=== PATIENT | male | born 1950 | race Caucasian/White ===

== ENCOUNTER → 2016-04-14 | Outpatient (CLI) | payer MEDICARE ==
[~2016-04-14] MED LIST: /ESCI20TA PO; /WARF25TA PO; ACET50TA PO; ACET50TAOT PO; ACID1CAP PO; ALPR0.25 PO; ATOR1TAB19 PO; BAYE325T12 PO; BISAC5TA PO; CALCTAB68 PO; CALCTAB7 PO; CIPR500S PO; CIPR500T89 PO; CLOB05OI TOP; D-10TAB2 PO; FINA5TAB2 PO; FLOM5CAP PO; GAS-80CH PO; GLIP5TAB2 PO; GLIP5TAB8 PO; HYDR200T3 PO; INFL10VL IV; ISOS10TAB PO; LANTINJ4 SC; LISI-538 PO; LISI10TA4 PO; LISI5TAB PO; MAGN400C2 PO; MAGN400T5 PO; MIRA3350 PO; OREN250I IV; PANT40TA2 PO; PERC5TAB6 PO; PERCOCET PO; PLAQ200T PO; POLYBTL PO; PRED10PA2 PO; PRED10TA PO; PRED5TA PO; SPIR25TA2 PO; TORS10TA3 PO; TORS20TA2 PO; TRAM50TA2 PO; TRAZ50TA4 PO; TRIAMCINOLONE TOP; VITA100T98 PO; VITA400T PO; VITA500055 PO; WARF-18 PO; WARF05TA PO; XANA0.25 PO; ZEST20TA8 PO; [UNRECOGNIZED DRUG - CODE] PR
== END ==
LOC: M ONCR 09:54
PROVIDERS: ATTEND Radiology Radiation Oncology
DX: C43.59 Malignant melanoma of other part of trunk (principal)

== ENCOUNTER → 2016-04-18 | Outpatient (CLI) | payer MEDICARE ==
[2016-04-18 13:08] LABS: INR 3.7
== END ==
LOC: M WUC 10:09
PROVIDERS: ATTEND Nurse Practitioner Family
DX: I48.2 Chronic atrial fibrillation (principal)

== ENCOUNTER → 2016-04-25 | Outpatient (CLI) | payer MEDICARE ==
[2016-04-25 13:45] LABS: INR 2.22
== END ==
LOC: M WUC 10:08
PROVIDERS: ATTEND Nurse Practitioner Family
DX: I48.2 Chronic atrial fibrillation (principal)

== ENCOUNTER → 2016-04-29 | Outpatient (CLI) | payer MEDICARE ==
--- NOTE | 2016-05-02 13:06 | REP ---
Whole body radionuclide bone scan: History: Melanoma. Comparison bone scan is from September 30, 2015. The prior study showed areas of increased uptake in the subtrochanteric femur on the right as well as in the right 6th rib and the right frontal bone of the calvarium. Technique: 21.2 mCi technetium 99m MDP is injected and standard whole body bone scan imaging is acquired. Scintigraphic findings: A focus of increased uptake is again seen in the right frontal bone unchanged from the comparison study. There is subtle increased uptake and medial aspect of the subtrochanteric right femur unchanged. Previously noted right sixth rib uptake is improved but still visible on oblique planar image. No new area of increased uptake is seen. There is arthritic uptake in the right knee. There is uptake in bilateral kidneys and in the urinary bladder. There is arthritic uptake at the shoulders bilaterally unchanged. Impression: There is no new area of increased uptake. Right rib uptake is improved. Signed by Sachin Hernandez MD 05/02/2016 01:26 P
== END ==
LOC: M RAD 10:07
PROVIDERS: ATTEND Internal Medicine Medical Oncology
DX: C43.9 Malignant melanoma of skin, unspecified (principal)
CPT/HCPCS: 78306; A9503

== ENCOUNTER → 2016-05-03 | Outpatient (RCR) | payer MEDICARE | LOC: M PT 04-07 09:38 | PROVIDERS: ATTEND Orthopaedic Surgery | DX: Z51.89 Encounter for other specified aftercare (principal); M65.812 Other synovitis and tenosynovitis, left shoulder | CPT/HCPCS: 97035; 97110; 97140; 97161; G0283; G8984; G8985 ==

== ENCOUNTER → 2016-05-04 | Outpatient (CLI) | payer MEDICARE ==
--- NOTE | 2016-05-04 15:35 | REP ---
PET/CT: History: Restaging melanoma. Originally for skin melanoma. 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 Comparisons: Comparison PET/CT January 20, 2016 and July 17, 2014. TECHNIQUE: 74 minutes following the intravenous injection of a 8.0 mCi dose of F-18 FDG, three-dimensional PET scintigraphy is acquired from the vertex to the toes. Triplanar noncontrast CT scanning is acquired through the same anatomic range for attenuation correction, and image registration with scan parameters optimized to minimize radiation exposure to the patient. PET scintigraphy and CT datasets were fused and displayed on a workstation with multiplanar and projection display capability. PET/CT Findings: There are postoperative changes in the left inguinal soft tissues at the site of the left inguinal node resection with no hypermetabolic uptake. There is however hypermetabolic milagros uptake in an enlarged lymph node posterior to the left external iliac vein along the left pelvic sidewall. Maximum SUV value in this lymph node is 11.9. This node is enlarged, measuring 2.2 cm. It is a new finding from the prior study. No other abnormal milagros hypermetabolic uptake is seen in the abdomen or pelvis. No abnormal hepatic uptake. Gallstones are seen. There is hypermetabolic uptake again seen in the region of the anus. This was present on the original PET/CT study of July 17, 2014 and was absent most recently on January 20, 2016. Maximum SUV value in this is 5.9 today. Uncertain significance. No abnormal hypermetabolic uptake is seen in the chest. Head and neck soft tissues are unremarkable. No abnormal skeletal uptake is seen. No intracranial abnormal uptake is seen. Impression: New hypermetabolic lymphadenopathy along the left pelvic sidewall. Recurrent mildly hypermetabolic uptake in the region of the anus, uncertain significance. Postoperative changes in the left inguinal soft tissues. Cholelithiasis again noted. Signed by Sachin Hernandez MD 05/04/2016 04:24 P
== END ==
LOC: M RAD 07:41
PROVIDERS: ATTEND Internal Medicine Medical Oncology
DX: C43.9 Malignant melanoma of skin, unspecified (principal); R59.1 Generalized enlarged lymph nodes
CPT/HCPCS: 78816; A9552

== ENCOUNTER 2016-05-09 10:09 | Outpatient (RCR) | payer MEDICARE ==
--- NOTE | 2016-05-10 07:14 | RADONC ---
RADIATION ONCOLOGY SIMULATION NOTE DATE: 05/09/2016 Mr. Valadez was taken to the CT scan for CT simulation of his inguinal field. CT was accomplished without difficulty or discomfort. Radiation treatment planning is underway and radiation treatments will begin subsequently. An immobilization device was created without difficulty or discomfort. It will be used throughout the course treatment as well. I was physically present throughout the course of CT simulation.
--- NOTE | 2016-05-16 08:02 | RADONC ---
RADIATION ONCOLOGY SIMULATION NOTE DATE: 05/12/2016 CHART NUMBER: [id number]. Mr. Valadez was taken to the linear accelerator today for clinical setup of his left inguinal electron field. Setup was accomplished without difficulty or discomfort. Radiation treatment planning is underway and radiation treatments will begin subsequently. An immobilization device was created at the time of CT simulation and will be utilized throughout the course of treatment. We initially CT him in order to calculate the depth of electron field necessary. I was physically present throughout the course of this electron clinical simulation.
--- NOTE | 2016-05-25 09:12 | RADONC ---
RADIATION ONCOLOGY PROGRESS NOTE DATE: 05/23/2016 CHART NUMBER: [id number] Mr. Valadez is presently at a dose of 1500 cGy to his left inguinal region and is tolerating treatments quite well with no complaints at this time related to his radiation therapy. He is having no skin pain or discomfort. REVIEW OF SYSTEMS: The patient's review of systems is noncontributory. He denies nausea, vomiting, fevers, chills, night sweats, diplopia, headaches, anxiety or depression, anorexia, weight loss, visual disturbances, chest pain, urinary or bowel difficulties, bone pain or neurological problems. PHYSICAL EXAMINATION: The patient's skin is in good condition with no evidence of radiation change present. There is no moist or dry desquamation. The remainder of his physical exam remains unchanged. Mr. Valadez is tolerating treatments quite well and radiation will continue as scheduled.
--- NOTE | 2016-05-30 10:39 | RADONC ---
RADIATION ONCOLOGY PROGRESS NOTE: DATE: 05/30/2016 Mr. Valadez is presently at a dose of 2750 cGy to his left inguinal region and is tolerating treatments quite well at this point with no complaints related to his radiation therapy. He has no skin discomfort or other problems. REVIEW OF SYSTEMS: The patient's review of systems is noncontributory. Denies nausea, vomiting, fevers, chills, night sweats, diplopia, headaches, anxiety or depression, anorexia, weight loss, visual disturbances, chest pain, urinary or bowel difficulties, bone pain, or neurological problems. PHYSICAL EXAMINATION: The patient's skin is in excellent condition with no evidence of radiation change present. There is no moist or dry desquamation. The patient is a well-developed, well-nourished male in no acute distress. HEENT exam is normocephalic, atraumatic. Extraocular movements are intact. There is no palpable cervical, supraclavicular, infraclavicular, axillary, or inguinal lymphadenopathy present. Lungs are clear to auscultation and percussion. Heart has a regular rate and rhythm. Abdomen is benign with no hepatosplenomegaly, masses, or tenderness. Rectal examination reveals a normal anal sphincter tone. His prostate is smooth with no evidence of nodularity. Skeletal examination reveals no tenderness to pressure or percussion of the bony skeleton. Extremities reveal no clubbing, cyanosis, or edema. Neurologic exam is grossly intact, as is the remainder of the physical examination. Mr. Valadez is tolerating treatments quite well and radiation will continue as scheduled.
== END 2016-05-31 ==
LOC: M ONCR 10:09
PROVIDERS: ATTEND Radiology Radiation Oncology
DX: C77.4 Secondary and unspecified malignant neoplasm of inguinal and lower limb lymph nodes (principal); C44.90 Unspecified malignant neoplasm of skin, unspecified; D03.8 Melanoma in situ of other sites

== ENCOUNTER → 2016-05-09 | Outpatient (CLI) | payer MEDICARE | LOC: M RAD 08:33 | PROVIDERS: ATTEND Radiology Radiation Oncology | DX: C43.9 Malignant melanoma of skin, unspecified (principal) ==

== ENCOUNTER → 2016-05-16 | Outpatient (CLI) | payer MEDICARE ==
[2016-05-16 13:12] LABS: MEAN CORPUSCULAR HEMOGLOBIN 32.8 pg (27.0-33.0); MEAN CORPUSCULAR VOLUME 99.5 fl (80.0-96.0); WHITE BLOOD COUNT 14.4 K/mm3 (4.0-10.0)
[2016-05-16 13:19] LABS: ALBUMIN 3.4 GM/DL (3.2-5.2); ALBUMIN/GLOBULIN RATIO 1.03 (1.00-1.93); ALKALINE PHOSPHATASE 69 U/L (45-117); ALT/SGPT 32 U/L (12-78); ANION GAP 7 MEQ/L (8-16); AST/SGOT 20 U/L (15-37); BILIRUBIN,TOTAL 0.7 MG/DL (0.2-1.0); BLOOD UREA NITROGEN 35 MG/DL (7-18); CARBON DIOXIDE LEVEL 32 MEQ/L (21-32); CHLORIDE LEVEL 100 MEQ/L (98-107); CREATININE FOR GFR 1.23 MG/DL (0.70-1.30); GLOMERULAR FILTRATION RATE > 60.0 (>49); GLUCOSE, FASTING 201 MG/DL (80-110); SODIUM LEVEL 139 MEQ/L (136-145); TOTAL PROTEIN 6.7 GM/DL (6.4-8.2)
[2016-05-16 13:20] LABS: POTASSIUM SERUM 5.6 MEQ/L (3.5-5.1)
== END ==
LOC: M WUC 09:21
PROVIDERS: ATTEND Family Medicine
DX: M06.9 Rheumatoid arthritis, unspecified (principal); I10 Essential (primary) hypertension; E11.65 Type 2 diabetes mellitus with hyperglycemia; M85.9 Disorder of bone density and structure, unspecified; E55.9 Vitamin D deficiency, unspecified; I50.32 Chronic diastolic (congestive) heart failure; I48.2 Chronic atrial fibrillation; Z51.81 Encounter for therapeutic drug level monitoring; Z79.01 Long term (current) use of anticoagulants

== ENCOUNTER → 2016-05-16 | Outpatient (CLI) | payer MEDICARE ==
[2016-05-16 13:11] LABS: MEAN CORPUSCULAR HEMOGLOBIN 32.9 pg (27.0-33.0); MEAN CORPUSCULAR HGB CONC 33.1 g/dl (32.0-36.5); MEAN CORPUSCULAR VOLUME 99.4 fl (80.0-96.0); RED CELL DISTRIBUTION WIDTH 14.1 % (11.5-14.5); WHITE BLOOD COUNT 14.3 K/mm3 (4.0-10.0)
[2016-05-16 13:21] LABS: ALBUMIN 3.5 GM/DL (3.2-5.2); ANION GAP 10 MEQ/L (8-16); BLOOD UREA NITROGEN 37 MG/DL (7-18); CARBON DIOXIDE LEVEL 29 MEQ/L (21-32); CHLORIDE LEVEL 100 MEQ/L (98-107); CREATININE FOR GFR 1.18 MG/DL (0.70-1.30); GLOMERULAR FILTRATION RATE > 60.0 (>49); GLUCOSE, FASTING 203 MG/DL (80-110); PHOSPHORUS LEVEL 3.5 MG/DL (2.5-4.9); SODIUM LEVEL 139 MEQ/L (136-145)
== END ==
LOC: M WUC 09:33
PROVIDERS: ATTEND Physician Assistant
DX: I50.32 Chronic diastolic (congestive) heart failure (principal); I48.2 Chronic atrial fibrillation

== ENCOUNTER → 2016-05-16 | Outpatient (CLI) | payer MEDICARE ==
[2016-05-16 13:50] LABS: INR 3.03
== END ==
LOC: M WUC 09:26
PROVIDERS: ATTEND Nurse Practitioner Family
DX: I48.2 Chronic atrial fibrillation (principal); Z51.81 Encounter for therapeutic drug level monitoring; Z79.01 Long term (current) use of anticoagulants

== ENCOUNTER → 2016-05-16 | Outpatient (CLI) | payer MEDICARE ==
[2016-05-16 13:17] LABS: ANION GAP 6 MEQ/L (8-16); BLOOD UREA NITROGEN 37 MG/DL (7-18); CARBON DIOXIDE LEVEL 32 MEQ/L (21-32); CHLORIDE LEVEL 100 MEQ/L (98-107); GLOMERULAR FILTRATION RATE > 60.0 (>49); GLUCOSE, FASTING 200 MG/DL (80-110); SODIUM LEVEL 138 MEQ/L (136-145)
[2016-05-16 13:19] LABS: POTASSIUM SERUM 5.2 MEQ/L (3.5-5.1)
== END ==
LOC: M WUC 09:38
PROVIDERS: ATTEND Physician Assistant Medical
DX: M85.9 Disorder of bone density and structure, unspecified (principal); E55.9 Vitamin D deficiency, unspecified

== ENCOUNTER → 2016-05-19 | Outpatient (CLI) | payer MEDICARE ==
[~2016-05-19] MED LIST changes: +SILV-4 TOP
[2016-05-19 20:03] LABS: CALCIUM LEVEL 8.8 MG/DL (8.8-10.2); CREATININE FOR GFR 1.3 MG/DL (0.70-1.30)
[2016-05-19 20:15] LABS: POTASSIUM SERUM 5.3 MEQ/L (3.5-5.1)
== END ==
LOC: M WUC 11:48
PROVIDERS: ATTEND Nurse Practitioner Family
DX: E87.5 Hyperkalemia (principal); I11.0 Hypertensive heart disease with heart failure; I48.2 Chronic atrial fibrillation; E78.2 Mixed hyperlipidemia; M06.9 Rheumatoid arthritis, unspecified; E11.42 Type 2 diabetes mellitus with diabetic polyneuropathy
CPT/HCPCS: 36415; 80048; G0463

== ENCOUNTER 2016-05-25 07:00 | Outpatient (RCR) | payer MEDICARE ==
[~2016-05-25 07:00] MED LIST changes: -SILV-4 TOP
== END 2016-05-31 ==
LOC: M PT 07:00
PROVIDERS: ATTEND Orthopaedic Surgery
DX: Z51.89 Encounter for other specified aftercare (principal); M65.812 Other synovitis and tenosynovitis, left shoulder
CPT/HCPCS: 97110; 97140; G8984; G8985

== ENCOUNTER 2016-06-01 14:42 | Outpatient (RCR) | payer MEDICARE ==
[~2016-06-01 14:42] MED LIST changes: -SILV-4 TOP
[2016-06-06] MEDS ORDERED: SILV-4 TOP (08:29)
--- NOTE | 2016-06-06 13:22 | RADONC ---
RADIATION ONCOLOGY PROGRESS NOTE DATE: 06/06/2016 CHART NUMBER: [id number]. PROGRESS NOTE: Mr. Valadez is presently at a dose of 4000 cGy to his left inguinal region and had been tolerating his treatments quite well. The patient is now reporting some tenderness of the skin in the inguinal area. REVIEW OF SYSTEMS: The patient's review of systems is positive for some tenderness but is otherwise noncontributory. The patient's review of systems is noncontributory. Denies nausea, vomiting, fevers, chills, night sweats, diplopia, headaches, anxiety or depression, anorexia, weight loss, visual disturbances, chest pain, urinary or bowel difficulties, bone pain, or neurological problems. PHYSICAL EXAMINATION: The patient's skin shows some moist desquamation in the skin folds of the inguinal region. The remainder of the skin is in good condition with no evidence of moist or dry desquamation. The remainder of his physical exam remains unchanged. Mr. Valadez has now developed some moist desquamation and tenderness. I have placed the patient on rest for the remainder of the week and radiation will resume on Monday. I have also sent in a prescription for Silvadene to be applied topically.
--- NOTE | 2016-06-13 09:09 | RADONC ---
RADIATION ONCOLOGY PROGRESS NOTE DATE: 06/13/2016 CHART NUMBER: [id number]. Mr. Valadez is presently at a dose of 4250 cGy to his left inguinal area and overall is tolerating treatments at this point pretty well. He had been on rest since Monday last week for an open area of desquamation. He returns today feeling somewhat better. The areas quite small and I think it is safe to reinitiate treatment at this point. He only has four fractions to go. He is using his Silvadene. REVIEW OF SYSTEMS: The patient's review of systems is positive for some tenderness in the treated left inguinal region, but is otherwise noncontributory. He denies nausea, vomiting, fevers, chills, night sweats, diplopia, headaches, anxiety or depression, anorexia, weight loss, visual disturbances, chest pain, urinary or bowel difficulties, bone pain or neurological problems. PHYSICAL EXAMINATION: The patient's skin is overall in good condition except for a 1 cm circular moist desquamation spot. The remainder of his physical exam remains unchanged. Mr. Valadez has resumed radiation today and it will continue until .
--- NOTE | 2016-06-16 10:00 | RADONC ---
RADIATION ONCOLOGY TREATMENT SUMMARY: DATE: 06/16/2016 DIAGNOSIS: Malignant melanoma. STAGE: Stage is III, [id number] versus stage IV, [id number] ECOG PERFORMANCE STATUS: 0 Mr. 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 We treated the left inguinal region for a dose of 5000 cGy delivered in 20 fractions of 250 cGy each over 31 elapsed days from 05/16/2016 through 06/16/2016. The patient's left inguinal region was treated on the linear accelerator utilizing a 16 MEV electron beam prescribed to the 90% isodose line via an en face technique. Mr. Valadez tolerated his treatments quite well but did develop some moist desquamation requiring a short treatment break. He was subsequently able to complete therapy as prescribed. I have scheduled the patient to see me again in 1 month for further followup. He will also continue to be followed by his other physicians as well. cc: MD Alhaji Mulligan MD
== END 2016-07-01 ==
LOC: M ONCR 14:42
PROVIDERS: ATTEND Radiology Radiation Oncology
DX: C77.4 Secondary and unspecified malignant neoplasm of inguinal and lower limb lymph nodes (principal); D03.8 Melanoma in situ of other sites; C44.90 Unspecified malignant neoplasm of skin, unspecified

== ENCOUNTER → 2016-06-01 | Outpatient (CLI) | payer MEDICARE ==
[~2016-06-01] MED LIST changes: +SILV-4 TOP
[2016-06-01 09:19] LABS: BASO % 0.2 % (0.0-1.0); EOS # 0.1 K/mm3 (0.0-0.50); EOS % 1.2 % (0.0-3.0); LARGE UNSTAINED CELL # 0.2 K/mm3 (0.0-0.4); LARGE UNSTAINED CELL % 1.8 % (0.0-4.0); LYMPH # 1.3 K/mm3 (1.5-4.5); LYMPH % 11.5 % (24.0-44.0); MEAN CORPUSCULAR HEMOGLOBIN 32.6 pg (27.0-33.0); MEAN CORPUSCULAR HGB CONC 33.7 g/dl (32.0-36.5); MEAN CORPUSCULAR VOLUME 96.8 fl (80.0-96.0); MONO # 0.7 K/mm3 (0.0-0.8); NEUTROPHILS # 8.6 K/mm3 (1.8-7.7); NEUTROPHILS % 79.4 % (36.0-66.0); PLATELET COUNT, AUTOMATED 199 k/mm3 (150-450); RED CELL DISTRIBUTION WIDTH 13.7 % (11.5-14.5); WHITE BLOOD COUNT 10.9 K/mm3 (4.0-10.0)
[2016-06-01 09:42] LABS: ALBUMIN 3.4 GM/DL (3.2-5.2); ALBUMIN/GLOBULIN RATIO 0.92 (1.00-1.93); ALKALINE PHOSPHATASE 69 U/L (45-117); ALT/SGPT 27 U/L (12-78); ANION GAP 10 MEQ/L (8-16); AST/SGOT 20 U/L (15-37); BILIRUBIN,TOTAL 0.7 MG/DL (0.2-1.0); BLOOD UREA NITROGEN 34 MG/DL (7-18); CALCIUM LEVEL 8.6 MG/DL (8.8-10.2); CARBON DIOXIDE LEVEL 27 MEQ/L (21-32); CHLORIDE LEVEL 100 MEQ/L (98-107); CREATININE FOR GFR 1.05 MG/DL (0.70-1.30); GLOMERULAR FILTRATION RATE > 60.0 (>49); GLUCOSE, FASTING 163 MG/DL (80-110); POTASSIUM SERUM 4.6 MEQ/L (3.5-5.1); SODIUM LEVEL 137 MEQ/L (136-145); TOTAL PROTEIN 7.1 GM/DL (6.4-8.2)
== END ==
LOC: M WUC 08:31
PROVIDERS: ATTEND Internal Medicine Rheumatology
DX: K76.0 Fatty (change of) liver, not elsewhere classified (principal)

== ENCOUNTER → 2016-06-13 | Outpatient (CLI) | payer MEDICARE ==
[~2016-06-13] MED LIST changes: +SILV-4 TOP
[2016-06-13 12:30] LABS: INR 3.25
== END ==
LOC: M WUC 09:32
PROVIDERS: ATTEND Physician Assistant
DX: I48.2 Chronic atrial fibrillation (principal)

== ENCOUNTER → 2016-06-22 | Outpatient (CLI) | payer MEDICARE ==
--- NOTE | 2016-06-22 08:27 | REP ---
Clinical: Abdominal pain with history of irritable bowel syndrome. Technique: Real time bell scale ultrasound examination using curved array transducer. Findings: Liver and pancreas are normal in contour, size, echogenicity without focal hepatic or pancreatic lesions identified. The gallbladder demonstrates multiple mobile stones without wall thickening or pericholecystic fluid. No biliary ductal dilatation is appreciated and the common bile duct measures 4 mm diameter. Right kidney is normal in reniform shape without hydronephrosis measuring 11.8 x 6.5 x 6.4 cm with 1.7 cm medial lower pole cyst. Visualized abdominal aorta normal. No ascites. Impression: 1. Normal liver and pancreas. 2. Cholelithiasis. 3. 1.7 cm right renal cyst. Signed by Daron Abraham MD 06/22/2016 08:19 A
== END ==
LOC: M RAD 07:28
PROVIDERS: ATTEND Internal Medicine Gastroenterology
DX: K58.0 Irritable bowel syndrome with diarrhea (principal)

== ENCOUNTER → 2016-06-23 | Outpatient (CLI) | payer MEDICARE | LOC: M WUC 09:49 | PROVIDERS: ATTEND Internal Medicine Gastroenterology | DX: K58.0 Irritable bowel syndrome with diarrhea (principal) ==

== ENCOUNTER → 2016-06-23 | Outpatient (REF) | payer MEDICARE ==
[2016-06-23 19:54] LABS: MEAN CORPUSCULAR HEMOGLOBIN 33.3 pg (27.0-33.0); MEAN CORPUSCULAR HGB CONC 33.7 g/dl (32.0-36.5); MEAN CORPUSCULAR VOLUME 98.9 fl (80.0-96.0); RED CELL DISTRIBUTION WIDTH 13.8 % (11.5-14.5); WHITE BLOOD COUNT 12.5 K/mm3 (4.0-10.0)
[2016-06-23 20:15] LABS: ALBUMIN 3.6 GM/DL (3.2-5.2); ALBUMIN/GLOBULIN RATIO 0.97 (1.00-1.93); BILIRUBIN,TOTAL 0.6 MG/DL (0.2-1.0); CALCIUM LEVEL 8.8 MG/DL (8.8-10.2); CREATININE FOR GFR 1.61 MG/DL (0.70-1.30); GLOMERULAR FILTRATION RATE 46.1 (>49); TOTAL PROTEIN 7.3 GM/DL (6.4-8.2)
[2016-06-23 21:03] LABS: POTASSIUM SERUM 5.6 MEQ/L (3.5-5.1)
== END ==
LOC: M SFHCADAM 12:08
PROVIDERS: ATTEND Family Medicine
DX: R53.0 Neoplastic (malignant) related fatigue (principal); E13.9 Other specified diabetes mellitus without complications

== ENCOUNTER → 2016-06-23 | Outpatient (CLI) | payer MEDICARE ==
--- NOTE | 2016-06-23 13:56 | REP ---
CHEST, TWO VIEWS: HISTORY: Cough. COMPARISON: 01/21/2015 There is elevation of the left hemidiaphragm. The lungs are clear. The cardiac silhouette is enlarged. The pulmonary vasculature is normal in appearance. Degenerative change is present in the thoracic spine. IMPRESSION: Cardiomegaly. Signed by Yfn Hightower MD 06/23/2016 02:05 P
== END ==
LOC: M ADAMS 13:02
PROVIDERS: ATTEND Family Medicine
DX: I51.7 Cardiomegaly (principal); R05 Cough; R53.0 Neoplastic (malignant) related fatigue; E13.9 Other specified diabetes mellitus without complications; K58.0 Irritable bowel syndrome with diarrhea
CPT/HCPCS: 36415; 71020; 80053; 82397; 83036; 83520; 83883; 85027; G0463

== ENCOUNTER 2016-06-30 08:30 | Outpatient (RCR) | payer MEDICARE | END 2016-07-01 | LOC: M PT 08:30 | PROVIDERS: ATTEND Orthopaedic Surgery | DX: Z51.89 Encounter for other specified aftercare (principal); M65.812 Other synovitis and tenosynovitis, left shoulder | CPT/HCPCS: 97035; 97110; 97140; G8984; G8985; G8986 ==

== ENCOUNTER → 2016-06-30 | Outpatient (CLI) | payer MEDICARE ==
[2016-06-30 13:08] LABS: ALBUMIN 3.2 GM/DL (3.2-5.2); ALT/SGPT 29 U/L (12-78); CREATININE FOR GFR 1.25 MG/DL (0.70-1.30); GLOMERULAR FILTRATION RATE > 60.0 (>49)
[2016-06-30 13:59] LABS: BASO % 0.2 % (0.0-1.0); EOS # 0.1 K/mm3 (0.0-0.50); EOS % 1.3 % (0.0-3.0); LARGE UNSTAINED CELL # 0.1 K/mm3 (0.0-0.4); LARGE UNSTAINED CELL % 1.2 % (0.0-4.0); LYMPH # 0.6 K/mm3 (1.5-4.5); LYMPH % 6.4 % (24.0-44.0); MEAN CORPUSCULAR HEMOGLOBIN 32.2 pg (27.0-33.0); MEAN CORPUSCULAR HGB CONC 31.8 g/dl (32.0-36.5); MEAN CORPUSCULAR VOLUME 101.3 fl (80.0-96.0); MONO # 0.5 K/mm3 (0.0-0.8); MONO % 5.4 % (0.0-5.0); NEUTROPHILS # 8.1 K/mm3 (1.8-7.7); NEUTROPHILS % 85.5 % (36.0-66.0); PLATELET COUNT, AUTOMATED 190 k/mm3 (150-450); RED CELL DISTRIBUTION WIDTH 13.9 % (11.5-14.5); WHITE BLOOD COUNT 9.5 K/mm3 (4.0-10.0)
== END ==
LOC: M WUC 09:34
PROVIDERS: ATTEND Internal Medicine Rheumatology
DX: M06.09 Rheumatoid arthritis without rheumatoid factor, multiple sites (principal); Z51.81 Encounter for therapeutic drug level monitoring; Z79.899 Other long term (current) drug therapy

== ENCOUNTER → 2016-06-30 | Outpatient (CLI) | payer MEDICARE ==
[2016-06-30 12:55] LABS: INR 4.05
== END ==
LOC: M WUC 09:39
PROVIDERS: ATTEND Physician Assistant
DX: I48.2 Chronic atrial fibrillation (principal); Z51.81 Encounter for therapeutic drug level monitoring; Z79.01 Long term (current) use of anticoagulants; M06.09 Rheumatoid arthritis without rheumatoid factor, multiple sites; Z79.899 Other long term (current) drug therapy

== ENCOUNTER → 2016-07-12 | Outpatient (CLI) | payer MEDICARE | LOC: M WUC 11:12 | PROVIDERS: ATTEND Nurse Practitioner Family | DX: L98.499 Non-pressure chronic ulcer of skin of other sites with unspecified severity (principal); I48.2 Chronic atrial fibrillation; Z51.81 Encounter for therapeutic drug level monitoring; Z79.01 Long term (current) use of anticoagulants | CPT/HCPCS: 36415; 85610; 87070; 87077; 87186; G0463 ==

== ENCOUNTER → 2016-07-12 | Outpatient (REF) | payer MEDICARE | LOC: M SFHCPLAZ 15:41 | PROVIDERS: ATTEND Dermatology | DX: L98.499 Non-pressure chronic ulcer of skin of other sites with unspecified severity (principal) ==

== ENCOUNTER → 2016-07-20 | Outpatient (CLI) | payer MEDICARE ==
--- NOTE | 2016-07-21 07:55 | RADONC ---
RADIATION ONCOLOGY FOLLOWUP NOTE DATE: 07/20/2016 CHART NUMBER: [id number] DIAGNOSIS: Malignant melanoma, Stage IV, [id number]. ECOG PERFORMANCE STATUS: 0. FOLLOWUP NOTE: Mr. Valadez is a very pleasant 65-year-old white male with the diagnosis of a Stage IV, [id number] malignant melanoma of his penis who is presenting to us today for routine followup visit 1 month post completion of external beam radiation therapy to his left inguinal region in an attempt to achieve local control of that area. The patient presents today reporting that he is doing quite well with no complaints of pain in the treated area. He does report some upper abdominal discomfort and says that Dr. Gallego has scheduled a CT scan. The patient's review of systems is positive for some upper abdominal discomfort but is otherwise noncontributory. Denies nausea, vomiting, fevers, chills, night sweats, diplopia, headaches, anxiety or depression, anorexia, weight loss, visual disturbances, chest pain, urinary or bowel difficulties, bone pain, or neurological problems. PHYSICAL EXAMINATION: The patient is a well-developed, well-nourished male in no acute distress. HEENT exam is normocephalic, atraumatic. Extraocular movements are intact. There is no palpable cervical, supraclavicular, infraclavicular, axillary, or inguinal lymphadenopathy present. Lungs are clear to auscultation and percussion. Heart has a regular rate and rhythm. Abdomen is benign with no hepatosplenomegaly, masses, or tenderness. Rectal examination reveals a normal anal sphincter tone. Skeletal examination reveals no tenderness to pressure or percussion of the bony skeleton. Extremities reveal no clubbing, cyanosis, or edema. Neurologic exam is grossly intact, as is the remainder of the physical examination. ASSESSMENT: The patient is clinically stable at this time. The skin in the inguinal area is doing well and there is no evidence of breakthrough of any lymphadenopathy. I have scheduled the patient to see me again in 4 months for further followup. He will also continue to be followed by his other physicians as well. cc: MD Alhaji Mulligan MD
== END ==
LOC: M ONCR 11:21
PROVIDERS: ATTEND Radiology Radiation Oncology
DX: D03.8 Melanoma in situ of other sites (principal); C77.4 Secondary and unspecified malignant neoplasm of inguinal and lower limb lymph nodes; C44.90 Unspecified malignant neoplasm of skin, unspecified

== ENCOUNTER → 2016-07-20 | Outpatient (CLI) | payer MEDICARE ==
[2016-07-20 14:42] LABS: ALBUMIN 3.4 GM/DL (3.2-5.2); ALBUMIN/GLOBULIN RATIO 1.13 (1.00-1.93); BILIRUBIN,TOTAL 0.8 MG/DL (0.2-1.0); CALCIUM LEVEL 8.5 MG/DL (8.8-10.2); CREATININE FOR GFR 1.42 MG/DL (0.70-1.30); GLOMERULAR FILTRATION RATE 53.3 (>49); TOTAL PROTEIN 6.4 GM/DL (6.4-8.2)
[2016-07-20 14:49] LABS: POTASSIUM SERUM 5.6 MEQ/L (3.5-5.1)
== END ==
LOC: M WUC 10:20
PROVIDERS: ATTEND Physician Assistant
DX: R53.1 Weakness (principal); E87.5 Hyperkalemia
CPT/HCPCS: 36415; 80053; 82550; 83735; G0463

== ENCOUNTER → 2016-07-26 | Outpatient (CLI) | payer MEDICARE ==
[2016-07-26 13:39] LABS: BASO % 0.3 % (0.0-1.0); EOS # 0.1 K/mm3 (0.0-0.50); EOS % 0.6 % (0.0-3.0); LARGE UNSTAINED CELL # 0.2 K/mm3 (0.0-0.4); LARGE UNSTAINED CELL % 1.6 % (0.0-4.0); LYMPH % 7.7 % (24.0-44.0); MEAN CORPUSCULAR HEMOGLOBIN 34.7 pg (27.0-33.0); MEAN CORPUSCULAR HGB CONC 35.2 g/dl (32.0-36.5); MEAN CORPUSCULAR VOLUME 98.6 fl (80.0-96.0); MONO # 0.8 K/mm3 (0.0-0.8); MONO % 5.7 % (0.0-5.0); NEUTROPHILS # 11.5 K/mm3 (1.8-7.7); NEUTROPHILS % 84.2 % (36.0-66.0); PLATELET COUNT, AUTOMATED 190 k/mm3 (150-450); RED CELL DISTRIBUTION WIDTH 14.4 % (11.5-14.5); WHITE BLOOD COUNT 13.6 K/mm3 (4.0-10.0)
[2016-07-26 14:04] LABS: ALBUMIN 3.7 GM/DL (3.2-5.2); ALBUMIN/GLOBULIN RATIO 1.09 (1.00-1.93); ALKALINE PHOSPHATASE 80 U/L (45-117); ALT/SGPT 49 U/L (12-78); ANION GAP 6 MEQ/L (8-16); AST/SGOT 37 U/L (15-37); BILIRUBIN,TOTAL 0.6 MG/DL (0.2-1.0); BLOOD UREA NITROGEN 38 MG/DL (7-18); CALCIUM LEVEL 9.3 MG/DL (8.8-10.2); CARBON DIOXIDE LEVEL 32 MEQ/L (21-32); CHLORIDE LEVEL 102 MEQ/L (98-107); CREATININE FOR GFR 1.11 MG/DL (0.70-1.30); GLOMERULAR FILTRATION RATE > 60.0 (>49); GLUCOSE, FASTING 56 MG/DL (80-110); POTASSIUM SERUM 5.1 MEQ/L (3.5-5.1); SODIUM LEVEL 140 MEQ/L (136-145); TOTAL PROTEIN 7.1 GM/DL (6.4-8.2)
== END ==
LOC: M LAB 12:30
PROVIDERS: ATTEND Nurse Practitioner Family
DX: M06.9 Rheumatoid arthritis, unspecified (principal); E13.9 Other specified diabetes mellitus without complications
CPT/HCPCS: 36415; 74176; 80053; 82043; 83036; 85025; Q9963

== ENCOUNTER → 2016-07-26 | Outpatient (CLI) | payer MEDICARE ==
[~2016-07-26] MED LIST changes: +GASTROGRAFIN SOLUTION 30ML (Q9963) As Ordered ONE
--- NOTE | 2016-07-26 15:12 | REP ---
REASON: 10 pound weight loss in 2 weeks. Patient has a history of melanoma. COMPARISON: CT 12/24/2015. The lung bases are essentially clear with scattered calcified granulomatous changes and a few dependent subsegmental atelectatic changes. There are no pleural or pericardial effusions. Limited evaluation of the solid intra-abdominal organs shows no gross abnormalities or significant changes from the prior exam. Note is again made of cholelithiasis. Limited evaluation of the pancreas, adrenal glands, and kidneys shows no significant changes from the prior exam. There is a simple right renal cyst, status quo. Limited evaluation of the abdominal aorta and para-aortic regions shows no gross abnormalities or significant changes from the prior exam. The bowel loops and their mesenteries are within normal limits. There is no evidence of an intra-abdominal mass or adenopathy. CT PELVIS: There is no free fluid or free air. There is a 4.6 x 3 x 4.8 cm sized left hemipelvic sidewall lymph node, which represents a change from the prior exam. There is no evidence of right hemipelvic sidewall or inguinal adenopathy. Bone window technique throughout the exam shows no significant change in appearance of the osseous structures compared to 12/24/2015. The bones appear demineralized with spinal degenerative changes and multiple focal areas of lucency in the spine. IMPRESSION: 1. New left hemipelvic sidewall adenopathy, as described above. PET/CT is recommended. 2. Known cholelithiasis and cardiomegaly. 3. Known right renal cyst, unchanged. 4. Other findings as described above. Signed by Hemant Zambrano DO 07/26/2016 03:27 P
== END ==
LOC: M RAD 12:07
PROVIDERS: ATTEND Family Medicine
DX: R63.4 Abnormal weight loss (principal); R94.8 Abnormal results of function studies of other organs and systems; R10.9 Unspecified abdominal pain

== ENCOUNTER → 2016-07-28 | Outpatient (CLI) | payer MEDICARE ==
[~2016-07-28] MED LIST changes: -GASTROGRAFIN SOLUTION 30ML (Q9963) As Ordered ONE
[2016-07-28 17:07] LABS: INR 2.76
== END ==
LOC: M WUC 08:33
PROVIDERS: ATTEND Nurse Practitioner Family
DX: I48.2 Chronic atrial fibrillation (principal)

== ENCOUNTER → 2016-08-01 | Outpatient (CLI) | payer MEDICARE ==
[2016-08-01 09:31] LABS: BASO % 0.3 % (0.0-1.0); EOS # 0.1 K/mm3 (0.0-0.50); EOS % 1.7 % (0.0-3.0); LARGE UNSTAINED CELL # 0.1 K/mm3 (0.0-0.4); LYMPH # 0.6 K/mm3 (1.5-4.5); LYMPH % 8.5 % (24.0-44.0); MEAN CORPUSCULAR HEMOGLOBIN 33.5 pg (27.0-33.0); MEAN CORPUSCULAR HGB CONC 33.9 g/dl (32.0-36.5); MEAN CORPUSCULAR VOLUME 98.8 fl (80.0-96.0); MONO # 0.4 K/mm3 (0.0-0.8); MONO % 6.1 % (0.0-5.0); NEUTROPHILS # 5.8 K/mm3 (1.8-7.7); NEUTROPHILS % 81.4 % (36.0-66.0); PLATELET COUNT, AUTOMATED 162 k/mm3 (150-450); WHITE BLOOD COUNT 7.1 K/mm3 (4.0-10.0)
[2016-08-01 10:03] LABS: ALBUMIN/GLOBULIN RATIO 1.03 (1.00-1.93); ALKALINE PHOSPHATASE 70 U/L (45-117); ALT/SGPT 39 U/L (12-78); ANION GAP 6 MEQ/L (8-16); AST/SGOT 23 U/L (15-37); BILIRUBIN,TOTAL 0.7 MG/DL (0.2-1.0); BLOOD UREA NITROGEN 31 MG/DL (7-18); CARBON DIOXIDE LEVEL 29 MEQ/L (21-32); CHLORIDE LEVEL 105 MEQ/L (98-107); CREATININE FOR GFR 1.09 MG/DL (0.70-1.30); GLOMERULAR FILTRATION RATE > 60.0 (>49); GLUCOSE, FASTING 220 MG/DL (80-110); POTASSIUM SERUM 4.4 MEQ/L (3.5-5.1); SODIUM LEVEL 140 MEQ/L (136-145); TOTAL PROTEIN 5.9 GM/DL (6.4-8.2)
== END ==
LOC: M WUC 08:25
PROVIDERS: ATTEND Internal Medicine Medical Oncology
DX: C43.9 Malignant melanoma of skin, unspecified (principal)

== ENCOUNTER → 2016-08-02 | Outpatient (CLI) | payer MEDICARE ==
[2016-08-02 09:18] LABS: BASO % 0.4 % (0.0-1.0); EOS # 0.1 K/mm3 (0.0-0.50); EOS % 1.7 % (0.0-3.0); LARGE UNSTAINED CELL # 0.2 K/mm3 (0.0-0.4); LYMPH % 11.8 % (24.0-44.0); MEAN CORPUSCULAR HEMOGLOBIN 34.6 pg (27.0-33.0); MEAN CORPUSCULAR HGB CONC 34.7 g/dl (32.0-36.5); MEAN CORPUSCULAR VOLUME 99.9 fl (80.0-96.0); MONO # 0.5 K/mm3 (0.0-0.8); MONO % 6.6 % (0.0-5.0); NEUTROPHILS # 6.4 K/mm3 (1.8-7.7); NEUTROPHILS % 77.5 % (36.0-66.0); PLATELET COUNT, AUTOMATED 175 k/mm3 (150-450); RED CELL DISTRIBUTION WIDTH 15.1 % (11.5-14.5); WHITE BLOOD COUNT 8.2 K/mm3 (4.0-10.0)
[2016-08-02 09:41] LABS: ALBUMIN 3.1 GM/DL (3.2-5.2); ALT/SGPT 40 U/L (12-78); GLOMERULAR FILTRATION RATE > 60.0 (>49)
== END ==
LOC: M WUC 08:04
PROVIDERS: ATTEND Internal Medicine Rheumatology
DX: M06.09 Rheumatoid arthritis without rheumatoid factor, multiple sites (principal); Z79.899 Other long term (current) drug therapy

== ENCOUNTER → 2016-08-03 | Outpatient (CLI) | payer MEDICARE ==
--- NOTE | 2016-08-08 09:28 | REP ---
PET/CT: HISTORY: Restaging melanoma. COMPARISONS: Comparison PET/CT study May 04, 2016. May 23, 2016 PET/CT study showed new hypermetabolic lymphadenopathy along the left pelvic sidewall. The May PET/CT also showed hypermetabolic uptake in the anus. Comparison is made with CT abdomen and pelvis findings from July 26, 2016 as well. He is status post palliative radiation to the left groin completed June 16, 2016. TECHNIQUE: 67 minutes following the intravenous injection of a 8.3 mCi dose of F-18 FDG, three-dimensional PET scintigraphy is acquired from the skull base to the proximal thighs. Triplanar noncontrast CT scanning is acquired through the same anatomic range for attenuation correction, and image registration with scan parameters optimized to minimize radiation exposure to the patient. PET scintigraphy and CT datasets were fused and displayed on a workstation with multiplanar and projection display capability. PET/CT FINDINGS: Today's PET/CT study demonstrates enlargement of the left pelvic sidewall external iliac lymphadenopathy focus now 4.8 cm in greatest dimension. There is persistent hypermetabolic uptake within this milagros focus maximum standard uptake value is 13.0. Persistent hypermetabolic uptake is seen in the anus , maximum standard uptake value here is 9.2. No other abnormal hypermetabolic uptake is seen. Multiple granulomatous calcifications are seen in the lungs. Gallstones are noted as an incidental finding as well as left atrial and cardiac enlargement. IMPRESSION: The left pelvic sidewall lymphadenopathy has progressed since the May 04, 2016 prior PET/CT. This is larger and shows persistent hypermetabolic uptake. The focus of hypermetabolic uptake in the anus is again seen essentially unchanged. Signed by Sachin Hernandez MD 08/08/2016 10:54 A
== END ==
LOC: M PLARAD 15:10
PROVIDERS: ATTEND Internal Medicine Medical Oncology
DX: C43.9 Malignant melanoma of skin, unspecified (principal)
CPT/HCPCS: 78815; A9552

== ENCOUNTER → 2016-08-08 | Outpatient (REF) | payer MEDICARE | LOC: M LAB REF 12:39 | PROVIDERS: ATTEND Internal Medicine Medical Oncology | DX: G45.8 Other transient cerebral ischemic attacks and related syndromes (principal) ==

== ENCOUNTER → 2016-08-25 | Outpatient (CLI) | payer MEDICARE ==
[~2016-08-25] MED LIST changes: +ARAV20TA PO; +BACI50OI TOP; +CIPR-249 PO; -CIPR500T89 PO; +COLA100C5 PO; +FARX1TAB3 PO; +GABA-279 PO; +GABA-283 PO; +INSUDET SC; +JANU100T PO; +METH2.5TA PO; +MILKSUS PO; +NORC1TAB4 PO; +NORCOTAB PO; +ONDA4TAB5 PO; +PERC5TAB12 PO; -PERC5TAB6 PO; +PERC7.5T11 PO; +PRED1TABL PO; +TRAZ50TA11 PO; -TRAZ50TA4 PO; +ZITHTAB PO
[2016-08-25 11:44] LABS: ALBUMIN 2.9 GM/DL (3.2-5.2); ANION GAP 6 MEQ/L (8-16); BLOOD UREA NITROGEN 27 MG/DL (7-18); CALCIUM LEVEL 8.4 MG/DL (8.8-10.2); CARBON DIOXIDE LEVEL 34 MEQ/L (21-32); CHLORIDE LEVEL 99 MEQ/L (98-107); CREATININE FOR GFR 1.16 MG/DL (0.70-1.30); GLOMERULAR FILTRATION RATE > 60.0 (>49); GLUCOSE, FASTING 163 MG/DL (80-110); MAGNESIUM LEVEL 2.1 MG/DL (1.8-2.4); POTASSIUM SERUM 4.3 MEQ/L (3.5-5.1); SODIUM LEVEL 139 MEQ/L (136-145)
== END ==
LOC: M WUC 09:23
PROVIDERS: ATTEND Physician Assistant
DX: I50.32 Chronic diastolic (congestive) heart failure (principal); I48.2 Chronic atrial fibrillation; Z51.81 Encounter for therapeutic drug level monitoring; Z79.899 Other long term (current) drug therapy; M06.9 Rheumatoid arthritis, unspecified

== ENCOUNTER → 2016-08-25 | Outpatient (CLI) | payer MEDICARE ==
[~2016-08-25] MED LIST changes: -BACI50OI TOP; -CIPR-249 PO; +CIPR500T89 PO; -COLA100C5 PO; +FARX1TAB2 PO; -FARX1TAB3 PO; -GABA-279 PO; -INSUDET SC; -JANU100T PO; -MILKSUS PO; -NORC1TAB4 PO; -NORCOTAB PO; -ONDA4TAB5 PO; -PERC5TAB12 PO; +PERC5TAB6 PO; -PERC7.5T11 PO; -PRED1TABL PO; -TRAZ50TA11 PO; +TRAZ50TA4 PO
[2016-08-25 11:30] LABS: BASO % 0.3 % (0.0-1.0); EOS # 0.2 K/mm3 (0.0-0.50); EOS % 2.1 % (0.0-3.0); LARGE UNSTAINED CELL # 0.2 K/mm3 (0.0-0.4); LARGE UNSTAINED CELL % 2.1 % (0.0-4.0); LYMPH # 0.7 K/mm3 (1.5-4.5); LYMPH % 7.7 % (24.0-44.0); MEAN CORPUSCULAR HEMOGLOBIN 34.1 pg (27.0-33.0); MEAN CORPUSCULAR HGB CONC 34.5 g/dl (32.0-36.5); MONO # 0.5 K/mm3 (0.0-0.8); MONO % 6.2 % (0.0-5.0); NEUTROPHILS # 6.8 K/mm3 (1.8-7.7); NEUTROPHILS % 81.6 % (36.0-66.0); PLATELET COUNT, AUTOMATED 152 k/mm3 (150-450); RED CELL DISTRIBUTION WIDTH 15.6 % (11.5-14.5); WHITE BLOOD COUNT 8.3 K/mm3 (4.0-10.0)
[2016-08-25 11:40] LABS: ALT/SGPT 29 U/L (12-78); CREATININE FOR GFR 1.13 MG/DL (0.70-1.30); GLOMERULAR FILTRATION RATE > 60.0 (>49)
== END ==
LOC: M WUC 09:28
PROVIDERS: ATTEND Internal Medicine Rheumatology
DX: Z51.81 Encounter for therapeutic drug level monitoring (principal); Z79.899 Other long term (current) drug therapy; M06.9 Rheumatoid arthritis, unspecified

== ENCOUNTER 2016-08-30 07:25 | Emergency (ER) | payer MEDICARE ==
[~2016-08-30] VITALS: Ht 170.2 cm; Wt 86.2 kg
[~2016-08-30 07:25] MED LIST changes: -ARAV20TA PO; -FARX1TAB2 PO; -GABA-283 PO; -METH2.5TA PO; -ZITHTAB PO
[2016-08-30] MEDS ORDERED: METH2.5TA PO (07:52)
[2016-08-30] MEDS ORDERED: GABA-283 PO (07:52)
[2016-08-30] MEDS ORDERED: ARAV20TA PO (07:52)
[2016-08-30] MEDS ORDERED: FARX1TAB2 PO (07:52)
[2016-08-30 08:35] LABS: BASO % 0.6 % (0.0-1.0); EOS # 0.4 K/mm3 (0.0-0.50); EOS % 5.4 % (0.0-3.0); LARGE UNSTAINED CELL # 0.2 K/mm3 (0.0-0.4); LARGE UNSTAINED CELL % 2.3 % (0.0-4.0); LYMPH # 1.3 K/mm3 (1.5-4.5); LYMPH % 14.9 % (24.0-44.0); MEAN CORPUSCULAR HEMOGLOBIN 33.6 pg (27.0-33.0); MEAN CORPUSCULAR HGB CONC 34.3 g/dl (32.0-36.5); MONO # 0.4 K/mm3 (0.0-0.8); MONO % 5.5 % (0.0-5.0); NEUTROPHILS # 5.4 K/mm3 (1.8-7.7); NEUTROPHILS % 71.2 % (36.0-66.0); PLATELET COUNT, AUTOMATED 155 k/mm3 (150-450); RED CELL DISTRIBUTION WIDTH 15.9 % (11.5-14.5); WHITE BLOOD COUNT 7.6 K/mm3 (4.0-10.0)
[2016-08-30 08:41] LABS: INR 2.47
[2016-08-30 08:58] LABS: ALBUMIN 2.7 GM/DL (3.2-5.2); ALBUMIN/GLOBULIN RATIO 0.71 (1.00-1.93); ALKALINE PHOSPHATASE 89 U/L (45-117); ALT/SGPT 37 U/L (12-78); ANION GAP 7 MEQ/L (8-16); AST/SGOT 33 U/L (15-37); BILIRUBIN,DIRECT 0.2 MG/DL (0.0-0.2); BILIRUBIN,TOTAL 0.8 MG/DL (0.2-1.0); BLOOD UREA NITROGEN 26 MG/DL (7-18); CALCIUM LEVEL 8.3 MG/DL (8.8-10.2); CARBON DIOXIDE LEVEL 29 MEQ/L (21-32); CHLORIDE LEVEL 102 MEQ/L (98-107); CREATININE FOR GFR 0.95 MG/DL (0.70-1.30); GLOMERULAR FILTRATION RATE > 60.0 (>49); GLUCOSE, FASTING 82 MG/DL (80-110); POTASSIUM SERUM 3.9 MEQ/L (3.5-5.1); SODIUM LEVEL 138 MEQ/L (136-145); TOTAL PROTEIN 6.5 GM/DL (6.4-8.2)
[2016-08-30] MEDS ORDERED: ISOVUE-370 76% 100ML VIAL (Q9967) As Ordered ONE (09:51)
--- NOTE | 2016-08-30 10:49 | REP ---
CT ANGIO CHEST: TECHNIQUE: Axial contrast enhanced images from the thoracic inlet to the upper abdomen using 100 mL Isovue 370 intravenous contrast material with multiplanar reformations. There are patchy bilateral infiltrates diffusely bilaterally right greater than left. There are underling multiple calcified granulomas bilaterally. There is no CT evidence of pulmonary embolism. There is no aortic dissection. There is cardiomegaly. There are scattered mediastinal lymph nodes which are stable compared to the prior CT of 09/22/2014. There is no pleural or pericardial effusion. There are degenerative changes of the spine. Gallstones are seen in the gallbladder. Right renal cysts are again seen. IMPRESSION: Diffuse bilateral infiltrates, right greater than left. No CT evidence of pulmonary embolism. No pleural effusion. Cardiomegaly. Gallstones are seen in the gallbladder. Signed by Mason Bravo MD 09/01/2016 06:54 P
[2016-08-30 11:22] VITALS: O2SAT 88
--- NOTE | 2016-08-30 11:38 | ECGEPIP ---
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
[2016-08-30] MEDS ORDERED: ZITHTAB PO (12:52)
[2016-08-30 13:00] VITALS: BP 117/83
[2016-09-03 00:19] LABS: L PNEUMOPHILIA 1-6 IgG <1:128 (<1:128); L PNEUMOPHILIA 1-6 IgM < 1:16 (< 1:16)
== END 2016-08-30 13:03 | disposition home or self-care (01) ==
LOC: M ED 08:04
DX: R05 Cough (principal); C43.9 Malignant melanoma of skin, unspecified; I48.91 Unspecified atrial fibrillation; I50.9 Heart failure, unspecified; I25.10 Atherosclerotic heart disease of native coronary artery without angina pectoris; E11.9 Type 2 diabetes mellitus without complications; I10 Essential (primary) hypertension; K74.60 Unspecified cirrhosis of liver; R94.31 Abnormal electrocardiogram [ECG] [EKG]; I51.7 Cardiomegaly; K80.20 Calculus of gallbladder without cholecystitis without obstruction; Z79.4 Long term (current) use of insulin; Z79.84 Long term (current) use of oral hypoglycemic drugs; Z79.899 Other long term (current) drug therapy; Z79.02 Long term (current) use of antithrombotics/antiplatelets; Z88.0 Allergy status to penicillin; Z88.8 Allergy status to other drugs, medicaments and biological substances
CPT/HCPCS: 36415; 71275; 80048; 80076; 82550; 82553; 83880; 84484; 85025; 85610; 86171; 86713; 86738; 87040; 87070; 87205; 93005; 99284; Q9967

== ENCOUNTER → 2016-08-31 | Outpatient (CLI) | payer MEDICARE ==
[~2016-08-31] MED LIST changes: +ARAV20TA PO; +FARX1TAB2 PO; +GABA-283 PO; +METH2.5TA PO; +ZITHTAB PO
[2016-08-31 18:26] LABS: INR 2.46
== END ==
LOC: M WUC 10:43
PROVIDERS: ATTEND Physician Assistant
DX: I48.2 Chronic atrial fibrillation (principal)

== ENCOUNTER → 2016-09-06 | Outpatient (REF) | payer MEDICARE ==
[2016-09-06 14:05] LABS: FREE T4 1.35 NG/DL (0.76-1.46)
== END ==
LOC: M LAB REF 13:02
PROVIDERS: ATTEND Internal Medicine Medical Oncology
DX: C43.9 Malignant melanoma of skin, unspecified (principal); E03.9 Hypothyroidism, unspecified

== ENCOUNTER → 2016-09-08 | Outpatient (CLI) | payer MEDICARE | LOC: M WUC 09:22 | PROVIDERS: ATTEND Physician Assistant | DX: I48.2 Chronic atrial fibrillation (principal) ==

== ENCOUNTER → 2016-09-26 | Outpatient (CLI) | payer MEDICARE ==
[~2016-09-26] MED LIST changes: +BACI50OI TOP; +CIPR-249 PO; -CIPR500T89 PO; +COLA100C5 PO; -FARX1TAB2 PO; +FARX1TAB3 PO; +GABA-279 PO; +INSUDET SC; +JANU100T PO; +MILKSUS PO; +NORC1TAB4 PO; +NORCOTAB PO; +ONDA4TAB5 PO; +PERC5TAB12 PO; -PERC5TAB6 PO; +PERC7.5T11 PO; +PRED1TABL PO; +TRAZ50TA11 PO; -TRAZ50TA4 PO
[2016-09-26 10:51] LABS: BASO # 0.1 K/mm3 (0.0-0.2); BASO % 0.7 % (0.0-1.0); EOS # 2.3 K/mm3 (0.0-0.50); EOS % 22.3 % (0.0-3.0); LARGE UNSTAINED CELL # 0.1 K/mm3 (0.0-0.4); LARGE UNSTAINED CELL % 1.2 % (0.0-4.0); LYMPH # 1.8 K/mm3 (1.5-4.5); LYMPH % 15.8 % (24.0-44.0); MEAN CORPUSCULAR HEMOGLOBIN 34.8 pg (27.0-33.0); MEAN CORPUSCULAR HGB CONC 33.2 g/dl (32.0-36.5); MEAN CORPUSCULAR VOLUME 104.7 fl (80.0-96.0); MONO # 0.6 K/mm3 (0.0-0.8); MONO % 5.7 % (0.0-5.0); NEUTROPHILS # 5.6 K/mm3 (1.8-7.7); NEUTROPHILS % 54.4 % (36.0-66.0); PLATELET COUNT, AUTOMATED 173 k/mm3 (150-450); RED CELL DISTRIBUTION WIDTH 15.1 % (11.5-14.5); WHITE BLOOD COUNT 10.4 K/mm3 (4.0-10.0)
[2016-09-26 11:24] LABS: ALBUMIN 3.4 GM/DL (3.2-5.2); ALKALINE PHOSPHATASE 121 U/L (45-117); ALT/SGPT 42 U/L (12-78); ANION GAP 2 MEQ/L (8-16); AST/SGOT 27 U/L (15-37); BILIRUBIN,TOTAL 0.7 MG/DL (0.2-1.0); BLOOD UREA NITROGEN 29 MG/DL (7-18); CALCIUM LEVEL 8.9 MG/DL (8.8-10.2); CARBON DIOXIDE LEVEL 34 MEQ/L (21-32); CHLORIDE LEVEL 104 MEQ/L (98-107); CREATININE FOR GFR 0.92 MG/DL (0.70-1.30); GLOMERULAR FILTRATION RATE > 60.0 (>49); GLUCOSE, FASTING 131 MG/DL (80-110); POTASSIUM SERUM 4.3 MEQ/L (3.5-5.1); SODIUM LEVEL 140 MEQ/L (136-145); TOTAL PROTEIN 6.5 GM/DL (6.4-8.2)
== END ==
LOC: M WUC 08:07
PROVIDERS: ATTEND Nurse Practitioner Family
DX: E13.9 Other specified diabetes mellitus without complications (principal); M06.9 Rheumatoid arthritis, unspecified; I48.2 Chronic atrial fibrillation; Z51.81 Encounter for therapeutic drug level monitoring; Z79.01 Long term (current) use of anticoagulants; Z79.899 Other long term (current) drug therapy

== ENCOUNTER → 2016-09-26 | Outpatient (CLI) | payer MEDICARE ==
[~2016-09-26] MED LIST changes: -BACI50OI TOP; -CIPR-249 PO; +CIPR500T89 PO; -COLA100C5 PO; +FARX1TAB2 PO; -FARX1TAB3 PO; -GABA-279 PO; -INSUDET SC; -JANU100T PO; -MILKSUS PO; -NORC1TAB4 PO; -NORCOTAB PO; -ONDA4TAB5 PO; -PERC5TAB12 PO; +PERC5TAB6 PO; -PERC7.5T11 PO; -PRED1TABL PO; -TRAZ50TA11 PO; +TRAZ50TA4 PO
[2016-09-26 11:06] LABS: INR 2.16
== END ==
LOC: M WUC 08:18
PROVIDERS: ATTEND Physician Assistant
DX: I48.2 Chronic atrial fibrillation (principal); Z51.81 Encounter for therapeutic drug level monitoring; Z79.01 Long term (current) use of anticoagulants

== ENCOUNTER → 2016-09-26 | Outpatient (CLI) | payer MEDICARE ==
[2016-09-26 10:51] LABS: BASO % 0.5 % (0.0-1.0); EOS # 2.4 K/mm3 (0.0-0.50); EOS % 22.5 % (0.0-3.0); LARGE UNSTAINED CELL # 0.1 K/mm3 (0.0-0.4); LARGE UNSTAINED CELL % 1.3 % (0.0-4.0); LYMPH # 1.7 K/mm3 (1.5-4.5); MEAN CORPUSCULAR HEMOGLOBIN 34.6 pg (27.0-33.0); MEAN CORPUSCULAR VOLUME 104.7 fl (80.0-96.0); MONO # 0.7 K/mm3 (0.0-0.8); MONO % 6.2 % (0.0-5.0); NEUTROPHILS # 5.7 K/mm3 (1.8-7.7); NEUTROPHILS % 54.4 % (36.0-66.0); PLATELET COUNT, AUTOMATED 162 k/mm3 (150-450); WHITE BLOOD COUNT 10.6 K/mm3 (4.0-10.0)
[2016-09-26 11:19] LABS: ALBUMIN 3.3 GM/DL (3.2-5.2); ALT/SGPT 42 U/L (12-78); CREATININE FOR GFR 0.95 MG/DL (0.70-1.30); GLOMERULAR FILTRATION RATE > 60.0 (>49)
== END ==
LOC: M WUC 08:12
PROVIDERS: ATTEND Internal Medicine Rheumatology
DX: M06.09 Rheumatoid arthritis without rheumatoid factor, multiple sites (principal); Z51.81 Encounter for therapeutic drug level monitoring; Z79.899 Other long term (current) drug therapy

== ENCOUNTER → 2016-09-29 | Outpatient (CLI) | payer MEDICARE ==
[~2016-09-29] MED LIST changes: +BACI50OI TOP; +CIPR-249 PO; -CIPR500T89 PO; +COLA100C5 PO; -FARX1TAB2 PO; +FARX1TAB3 PO; +GABA-279 PO; +INSUDET SC; +JANU100T PO; +MILKSUS PO; +NORC1TAB4 PO; +NORCOTAB PO; +ONDA4TAB5 PO; +PERC5TAB12 PO; -PERC5TAB6 PO; +PERC7.5T11 PO; +PRED1TABL PO; +TRAZ50TA11 PO; -TRAZ50TA4 PO
--- NOTE | 2016-09-29 10:34 | REP ---
Gastric emptying nuclear scintigraphy: History: Abnormal weight loss. Early satiety. Technique: 0.949 mCi of technetium-99m sulfur colloid was ingested in two scrambled eggs and 6 ounces of water and sequential anterior and posterior images are acquired for an 89-minute imaging observation period. Regions of interest are drawn around the stomach to plot gastric emptying. Scintigraphic findings: Expected T1/2 is 90 minutes. Eight % emptying is observed in this patient during the 89-minute imaging observation period, for a calculated T1/2 in this patient of 585 minutes. Impression: Markedly delayed gastric emptying. Signed by Sachin Hernandez MD 09/29/2016 10:26 A
== END ==
LOC: M RAD 07:28
PROVIDERS: ATTEND Internal Medicine Gastroenterology
DX: K31.84 Gastroparesis (principal); R63.4 Abnormal weight loss; R68.81 Early satiety
CPT/HCPCS: 78264; A9541

== ENCOUNTER → 2016-10-18 | Outpatient (REF) | payer MEDICARE ==
[2016-10-18 13:34] LABS: FREE T4 1.39 NG/DL (0.76-1.46)
== END ==
LOC: M LAB REF 12:36
PROVIDERS: ATTEND Internal Medicine Medical Oncology
DX: C43.9 Malignant melanoma of skin, unspecified (principal); E07.9 Disorder of thyroid, unspecified

== ENCOUNTER → 2016-10-24 | Outpatient (CLI) | payer MEDICARE ==
[2016-10-24 13:09] LABS: INR 1.98
== END ==
LOC: M WUC 08:32
PROVIDERS: ATTEND Physician Assistant
DX: I48.2 Chronic atrial fibrillation (principal)

== ENCOUNTER → 2016-11-11 | Outpatient (CLI) | payer MEDICARE ==
[2016-11-11 14:13] LABS: ALBUMIN 2.9 GM/DL (3.2-5.2); ALBUMIN/GLOBULIN RATIO 0.97 (1.00-1.93); ALKALINE PHOSPHATASE 216 U/L (45-117); ALT/SGPT 84 U/L (12-78); ANION GAP 9 MEQ/L (8-16); AST/SGOT 45 U/L (15-37); BILIRUBIN,TOTAL 0.6 MG/DL (0.2-1.0); BLOOD UREA NITROGEN 24 MG/DL (7-18); CALCIUM LEVEL 8.4 MG/DL (8.8-10.2); CARBON DIOXIDE LEVEL 28 MEQ/L (21-32); CHLORIDE LEVEL 102 MEQ/L (98-107); CREATININE FOR GFR 0.96 MG/DL (0.70-1.30); GLOMERULAR FILTRATION RATE > 60.0 (>49); GLUCOSE, FASTING 261 MG/DL (80-110); POTASSIUM SERUM 4.5 MEQ/L (3.5-5.1); SODIUM LEVEL 139 MEQ/L (136-145); TOTAL PROTEIN 5.9 GM/DL (6.4-8.2)
== END ==
LOC: M WUC 08:34
PROVIDERS: ATTEND Family Medicine
DX: E13.9 Other specified diabetes mellitus without complications (principal)

== ENCOUNTER → 2016-11-11 | Outpatient (CLI) | payer MEDICARE ==
--- NOTE | 2016-11-11 09:52 | RADONC ---
RADIATION ONCOLOGY FOLLOWUP NOTE: DATE: 11/11/2016 CHART NUMBER: [id number]. DIAGNOSIS: Malignant melanoma. STAGE: IV, [id number]. ECOG PERFORMANCE STATUS: Zero. FOLLOWUP NOTE: Mr. Valadez is a very pleasant, 66-year-old white male with the diagnosis of a stage IV, [id number] malignant melanoma of his penis who is presenting to us today for routine followup visit 5 months post completion of external beam radiation therapy to his left inguinal region. The patient presents today reporting that he is being followed and managed closely by Dr. Gallego and has undergone his last systemic treatment 3 weeks ago. He saw Dr. Gallego on Monday and is scheduled again in 8 weeks. A PET scan is scheduled in the meantime. The patient has had no inguinal problems or other difficulties other than easy bruising. REVIEW OF SYSTEMS: The patient's review of systems is positive for easy bruising but is otherwise noncontributory. He denies standard review of systems. Denies nausea, vomiting, fevers, chills, night sweats, diplopia, headaches, anxiety or depression, anorexia, weight loss, visual disturbances, chest pain, urinary or bowel difficulties, bone pain, or neurological problems. PHYSICAL EXAMINATION: Standard male physical exam except after the normal physical no prostate. PHYSICAL EXAMINATION: The patient is a well-developed, well-nourished male in no acute distress. HEENT exam is normocephalic, atraumatic. Extraocular movements are intact. There is no palpable cervical, supraclavicular, infraclavicular, axillary, or inguinal lymphadenopathy present. Lungs are clear to auscultation and percussion. Heart has a regular rate and rhythm. Abdomen is benign with no hepatosplenomegaly, masses, or tenderness. Rectal examination reveals a normal anal sphincter tone. There are multiple bruises and petechiae present over the patient's entire body. Skeletal examination reveals no tenderness to pressure or percussion of the bony skeleton. Extremities reveal no clubbing, cyanosis, or edema. Neurologic exam is grossly intact, as is the remainder of the physical examination. ASSESSMENT: The patient is clinically doing well with regards to his radiated area. He reports that he has lost a significant amount of weight and has been taking Coumadin for many, many years. He is being monitored for this by Dr. Teixeira and recently underwent a coagulation workup on 10/24/2016. He is scheduled to see Dr. Teixeira again in the next few weeks. He is also, as mentioned above, being followed closely by Dr. Gallego. I will defer to their expertise with regards to his coagulation issues. I have discharged this patient from our followup except on an as needed basis. cc: MD Alhaji Mulligan MD James Willis, MD [facility]
== END ==
LOC: M ONCR 09:03
PROVIDERS: ATTEND Radiology Radiation Oncology
DX: C44.90 Unspecified malignant neoplasm of skin, unspecified (principal); D03.8 Melanoma in situ of other sites; C77.4 Secondary and unspecified malignant neoplasm of inguinal and lower limb lymph nodes

== ENCOUNTER → 2016-11-17 | Outpatient (CLI) | payer MEDICARE ==
[2016-11-17 14:23] LABS: INR 1.71
== END ==
LOC: M WUC 09:28
PROVIDERS: ATTEND Physician Assistant
DX: I48.2 Chronic atrial fibrillation (principal)

== ENCOUNTER → 2016-11-17 | Outpatient (CLI) | payer MEDICARE ==
[2016-11-17 14:25] LABS: CALCIUM LEVEL 8.7 MG/DL (8.8-10.2)
== END ==
LOC: M WUC 09:32
PROVIDERS: ATTEND Internal Medicine Endocrinology, Diabetes & Metabolism
DX: M85.9 Disorder of bone density and structure, unspecified (principal); E55.9 Vitamin D deficiency, unspecified; I48.2 Chronic atrial fibrillation

== ENCOUNTER → 2016-12-01 | Outpatient (CLI) | payer MEDICARE ==
[2016-12-01 13:27] LABS: INR 1.75
== END ==
LOC: M WUC 09:28
PROVIDERS: ATTEND Physician Assistant
DX: I48.2 Chronic atrial fibrillation (principal)

== ENCOUNTER → 2016-12-12 | Outpatient (CLI) | payer MEDICARE ==
[2016-12-12 13:38] LABS: INR 1.87
[2016-12-12 14:01] LABS: ANION GAP 13 MEQ/L (8-16); BLOOD UREA NITROGEN 21 MG/DL (7-18); CALCIUM LEVEL 8.8 MG/DL (8.8-10.2); CARBON DIOXIDE LEVEL 25 MEQ/L (21-32); CHLORIDE LEVEL 102 MEQ/L (98-107); CREATININE FOR GFR 0.97 MG/DL (0.70-1.30); GLOMERULAR FILTRATION RATE > 60.0 (>49); GLUCOSE, FASTING 222 MG/DL (80-110); MAGNESIUM LEVEL 2.3 MG/DL (1.8-2.4); PHOSPHORUS LEVEL 3.3 MG/DL (2.5-4.9); POTASSIUM SERUM 4.2 MEQ/L (3.5-5.1); SODIUM LEVEL 140 MEQ/L (136-145)
== END ==
LOC: M WUC 11:05
PROVIDERS: ATTEND Physician Assistant
DX: Z51.81 Encounter for therapeutic drug level monitoring (principal); Z79.01 Long term (current) use of anticoagulants; I50.32 Chronic diastolic (congestive) heart failure; I48.2 Chronic atrial fibrillation; R79.89 Other specified abnormal findings of blood chemistry

== ENCOUNTER → 2016-12-12 | Outpatient (CLI) | payer MEDICARE ==
[2016-12-12 15:10] LABS: ALBUMIN/GLOBULIN RATIO 0.79 (1.00-1.93); ALKALINE PHOSPHATASE 355 U/L (45-117); ALT/SGPT 55 U/L (12-78); ANION GAP 12 MEQ/L (8-16); AST/SGOT 73 U/L (15-37); BILIRUBIN,TOTAL 0.7 MG/DL (0.2-1.0); BLOOD UREA NITROGEN 22 MG/DL (7-18); CALCIUM LEVEL 8.7 MG/DL (8.8-10.2); CARBON DIOXIDE LEVEL 26 MEQ/L (21-32); CHLORIDE LEVEL 105 MEQ/L (98-107); CREATININE FOR GFR 1.01 MG/DL (0.70-1.30); GLOMERULAR FILTRATION RATE > 60.0 (>49); GLUCOSE, FASTING 225 MG/DL (80-110); POTASSIUM SERUM 4.3 MEQ/L (3.5-5.1); SODIUM LEVEL 143 MEQ/L (136-145); TOTAL PROTEIN 6.8 GM/DL (6.4-8.2)
== END ==
LOC: M WUC 11:01
PROVIDERS: ATTEND Nurse Practitioner Family
DX: R79.89 Other specified abnormal findings of blood chemistry (principal)

== ENCOUNTER 2016-12-29 02:57 | Emergency (ER) | payer MEDICARE ==
[~2016-12-29] VITALS: Ht 172.7 cm; Wt 86.3 kg
[~2016-12-29 02:57] MED LIST changes: -BACI50OI TOP; -COLA100C5 PO; -GABA-279 PO; -INSUDET SC; -JANU100T PO; -MILKSUS PO; -NORC1TAB4 PO; -NORCOTAB PO; -ONDA4TAB5 PO; -PERC7.5T11 PO; -PRED1TABL PO
[2016-12-29] MEDS ORDERED: ISOVUE-370 76% 100ML VIAL (Q9967) As Ordered ONE (05:17)
--- NOTE | 2016-12-29 06:00 | REPUSA ---
CLINICAL HISTORY: Dyspnea, exclude PE. TECHNIQUE: Multiple incremental axial, coronal and oblique images are obtained from the thoracic inle t to the upper abdomen. Intravenous contrast material was administered as per pulmonary embolism prot ocol. COMMENTS: There is excellent opacification of pulmonary arterial system without evidence for pulmonary embolism . Aorta is of normal caliber without evidence for contrast in its lumen at the time of acquisition. Enlarged hilar lymph nodes with largest measuring 1.5 cm. Bilateral multifocal air trapping in the lungs. Subsegmental atelectatic airspace disease in the left lower lobe. Moderate hepatomegaly. Irregular hepatic contour. Bilateral ill-defined hypodense hepatic and splenic lesions suggestive of metastatic/infiltrative dis ease. There is no evidence of pleural or parenchymal mass. There are no pleural effusions. Images of the upper abdomen demonstrate no evidence of adrenal mass. The bony structures are free of lytic or blastic lesions. Multilevel degenerative changes are seen in volving the visualized thoracolumbar spine. Scattered calcifications are seen involving the aorta and major branches compatible with atherosclero sis. IMPRESSION: No evidence for pulmonary embolism. No contrast in the lumen of the aorta which limits its evaluation. Bilateral multifocal air trapping in the lungs. Subsegmental atelectatic airspace disease in the left lower lobe. Hepatomegaly. Irregular hepatic contour. Multiple hypodense nodules/masses of the liver and spleen suggestive of infiltrative/metastatic disea se. Thank you for your kind referral of this patient.
[2016-12-29] MEDS ORDERED: NORCO 5/325MG TABLET (BULK FOR ED) PO ONE (06:45)
[2016-12-29] MEDS ORDERED: NORCOTAB PO (06:47)
[2016-12-29 07:03] VITALS: BP 122/73
--- NOTE | 2016-12-29 08:27 | REP ---
Left ribs four views: There is a fracture of the left eighth rib laterally. No other rib fractures or rib abnormalities are identified. PA chest: Comparison is 01/21/2015. There is cardiomegaly, unchanged. The lung watters are clear. The callie and mediastinum are unremarkable. The left eighth rib fractures, better appreciated on the rib series. Skeletal structures are otherwise unremarkable. There is no pneumothorax, hemothorax or pulmonary contusion. Signed by Mason Fajardo MD 12/29/2016 08:18 A
--- NOTE | 2016-12-30 07:19 | ED PDOC ---
Post-Departure Follow-Up dr oropeza and dr darnell faxed formal read of cta chest for fu Rashaad Albert MD Dec 30, 2016 07:19
[2017-01-07] MEDS ORDERED: GABA-279 PO (17:25)
[2017-01-07] MEDS ORDERED: NORC1TAB4 PO (17:25)
[2017-01-07] MEDS ORDERED: PRED1TABL PO ×2 (17:25)
[2017-01-07] MEDS ORDERED: ALPR0.25 PO (17:26)
[2017-01-11] MEDS ORDERED: INSUDET SC (14:10)
[2017-01-11] MEDS ORDERED: MILKSUS PO (14:10)
[2017-01-11] MEDS ORDERED: PERC7.5T11 PO (14:10)
[2017-01-11] MEDS ORDERED: BACI50OI TOP (14:10)
[2017-01-11] MEDS ORDERED: COLA100C5 PO (14:10)
[2017-01-11] MEDS ORDERED: ONDA4TAB5 PO (14:10)
[2017-01-11] MEDS ORDERED: WARF-18 PO (15:23)
== END 2016-12-29 07:05 | disposition home or self-care (01) ==
LOC: M ED 02:57
DX: C44.90 Unspecified malignant neoplasm of skin, unspecified (principal); C78.7 Secondary malignant neoplasm of liver and intrahepatic bile duct; C78.89 Secondary malignant neoplasm of other digestive organs; S22.32XA Fracture of one rib, left side, initial encounter for closed fracture; X58.XXXA Exposure to other specified factors, initial encounter; Y92.9 Unspecified place or not applicable; Y93.9 Activity, unspecified; Y99.9 Unspecified external cause status; R16.0 Hepatomegaly, not elsewhere classified; I51.7 Cardiomegaly; E11.9 Type 2 diabetes mellitus without complications; I10 Essential (primary) hypertension; I48.91 Unspecified atrial fibrillation; I25.10 Atherosclerotic heart disease of native coronary artery without angina pectoris; M06.9 Rheumatoid arthritis, unspecified; Z79.4 Long term (current) use of insulin; Z79.899 Other long term (current) drug therapy; Z88.0 Allergy status to penicillin; Z88.8 Allergy status to other drugs, medicaments and biological substances
CPT/HCPCS: 71101; 71275; 85610; 85730; 99283; Q9967

== ENCOUNTER → 2016-12-29 | Outpatient (REF) | payer MEDICARE ==
[2016-12-29 19:36] LABS: INR 3.08
== END ==
LOC: M LAB REF 18:40
PROVIDERS: ATTEND Internal Medicine Medical Oncology
DX: C44.90 Unspecified malignant neoplasm of skin, unspecified (principal)

== ENCOUNTER 2017-01-02 13:30 | Emergency (ER) | payer MEDICARE ==
[~2017-01-02] VITALS: Ht 172.7 cm; Wt 86.4 kg
[~2017-01-02 13:30] MED LIST changes: -BACI50OI TOP; -COLA100C5 PO; -GABA-279 PO; -INSUDET SC; -JANU100T PO; -MILKSUS PO; -NORC1TAB4 PO; -ONDA4TAB5 PO; -PERC7.5T11 PO; -PRED1TABL PO
[2017-01-02] MEDS ORDERED: JANU100T PO (13:45)
[2017-01-02] MEDS ORDERED: NS 1,000 ML IV SCH (14:42)
[2017-01-02] MEDS: METOPROLOL 5 MG/5 ML VIAL IV SCH ×4 (15:00→15:15)
[2017-01-02] MEDS ORDERED: MORPHINE 4 MG/ML 1ML SYRINGE IV ONE (15:00)
[2017-01-02 15:03] LABS: MEAN CORPUSCULAR HEMOGLOBIN 32.7 pg (27.0-33.0); MEAN CORPUSCULAR HGB CONC 32.2 g/dl (32.0-36.5); MEAN CORPUSCULAR VOLUME 101.5 fl (80.0-96.0); PLATELET COUNT, AUTOMATED 273 10^3/uL (150-450); RED CELL DISTRIBUTION WIDTH 13.8 % (11.5-14.5); WHITE BLOOD COUNT 16.3 10^3/uL (4.0-10.0)
[2017-01-02 15:06] LABS: ADD MANUAL DIFFER YES; DIFF SLIDE NUMBER 257
[2017-01-02 15:19] LABS: INR 4.52
[2017-01-02 15:26] LABS: EOSINOPHILS 1 % (0-5)
--- NOTE | 2017-01-02 15:27 | REP ---
Chest x-ray: Two views. History: Palpitations. Evaluate for CHF. Comparison chest x-ray December 29, 2016. Findings: Frontal and lateral views of the chest show mildly prominent heart unchanged from the comparison study. Pleural angles are sharp. Pulmonary vasculature is not increased. There is no evidence of pulmonary edema. No bony destructive lesion is visible on the current radiograph. The recent rib series showed a pathologic fracture of the left 8th lateral rib. Impression: Mild cardiomegaly unchanged. No other radiographic evidence of failure. Signed by Sachin Hernandez MD 01/02/2017 04:58 P
[2017-01-02 15:31] LABS: ANION GAP 8 MEQ/L (8-16); BLOOD UREA NITROGEN 24 MG/DL (7-18); CARBON DIOXIDE LEVEL 29 MEQ/L (21-32); CHLORIDE LEVEL 100 MEQ/L (98-107); CREATININE FOR GFR 1.18 MG/DL (0.70-1.30); GLOMERULAR FILTRATION RATE > 60.0 (>49); GLUCOSE, FASTING 215 MG/DL (80-110); POTASSIUM SERUM 4.9 MEQ/L (3.5-5.1); SODIUM LEVEL 137 MEQ/L (136-145)
[2017-01-02 15:32] LABS: ALBUMIN 3.1 GM/DL (3.2-5.2); ALBUMIN/GLOBULIN RATIO 0.74 (1.00-1.93); ALKALINE PHOSPHATASE 550 U/L (45-117); ALT/SGPT 47 U/L (12-78); AST/SGOT 96 U/L (15-37); BILIRUBIN,DIRECT 1.3 MG/DL (0.0-0.2); TOTAL PROTEIN 7.3 GM/DL (6.4-8.2)
[2017-01-02] MEDS ORDERED: GASTROGRAFIN SOLUTION 30ML PO ONE (16:00)
[2017-01-02] MEDS ORDERED: GASTROGRAFIN SOLUTION 30ML (Q9963) PO ONE (16:30)
[2017-01-02] MEDS ORDERED: ISOVUE-370 76% 100ML VIAL (Q9967) As Ordered ONE (17:20)
--- NOTE | 2017-01-02 18:50 | REP ---
CT abdomen and pelvis with IV and oral contrast: History: Upper abdominal pain. According to a prior PET-CT study August 03, 2016, there is a history of melanoma. The patient gives a history of cirrhosis. There is also a history of CHF in atrial fibrillation. Comparison CT abdomen and pelvis is from July [address] contrast dose: 100 ml of intravenous Isovue 370. CT findings: Preliminary digital monitor and storage bin tender radiograph demonstrates an ileus pattern in the bowel gas with multiple loops of air-filled large and small intestine throughout the abdomen. There is moderate cardiac enlargement with marked enlargement of the left atrium again seen. Left atrium measures 8.6 cm in greatest anteroposterior dimension. The right atrium is dilated as well. No pleural or pericardial effusion is seen. There are granulomatous calcifications in the lung bases bilaterally. There are a few small, but new periesophageal lymph nodes. Retrocrural lymphadenopathy is seen. This includes a 1.7 cm node. These are new since July 2016. Gallstones are noted. The liver and the spleen are larger than on July 2016 and there is widespread heterogeneous involvement of the liver and spleen with multiple metastatic nodules throughout the left and right lobe of the liver and throughout the spleen. This is a new finding. There is diffuse moderate mural thickening in the gastric fundus. No pancreatic mass lesion is seen. There are some mildly enlarged periportal lymph nodes however. There is a descending duodenal diverticulum. Gallstones are noted. Small renal cortical cysts are seen bilaterally. There is fairly bulky periaortic lymphadenopathy. The largest left periaortic lymph node measures 4.0 x 3.4 cm. This is new from the July 2016 prior study. There are bilateral common and left external and internal iliac lymph nodes, which are enlarged and which have progressed since the July study. The largest lymph node now measures 6 x 4.7 cm, previously in July this node measured 4.4 x 3.0 cm. There are multiple new enlarged lymph nodes in the left external iliac and internal iliac chain as well. There is moderate stool in the distal colon and rectum. Ileus pattern described above is seen in the large and small bowel. No free air is seen. Bone window settings show no definite focal bony destructive lesion. There is a hemangioma to the right of midline in the L1 vertebral body. There is a left anterolateral lower rib fracture which may be pathologic involving the left 8th rib. There appears to be a somewhat expansile lesion here. Impression: Findings compatible with advanced progressive metastatic disease in the left pelvic, retroperitoneal, periportal, and periesophageal and retrocrural lymph node chains as well as widespread hepatic and splenic metastatic disease. Ileus pattern in the bowel gas. There is moderate diffuse mural thickening in the gastric fundus of uncertain significance. Cholelithiasis and renal cysts are also noted. Signed by Sachin Hernandez MD 01/02/2017 08:03 P
[2017-01-02 20:00] VITALS: BP 110/76
--- NOTE | 2017-01-03 10:55 | ED PDOC ---
Post-Departure Follow-Up waylon darnell and dr oropeza faxed formal report of ct abd/p for fu Rashaad Albert MD Jan 03, 2017 10:55
--- NOTE | 2017-01-04 06:15 | ECGEPIP ---
Stationary ECG Study [facility] - ED Test Date: 2017-01-02 Pat Name: MELI RIVERA Department: Room: - Gender: M Optometric Technologist: debbie : 1950 Requested By: Newton Hernandez Order Number: [id number] Reading MD: Newton Lacy Measurements Intervals Supai Rate: 91 P: W[place]: 0 QRS: 8 QRSD: 86 T: 65 QT: 338 QTc: 416 Interpretive Statements [employer] RBBB NONSPECIFIC T-WAVE ABNORMALITY SIMILAR TO 01/21/15 Electronically Signed On 01-04-2017 6:15:50 EDT by Newton Lacy
[2017-01-07] MEDS ORDERED: NORC1TAB4 PO (17:25)
[2017-01-07] MEDS ORDERED: GABA-279 PO (17:25)
[2017-01-07] MEDS ORDERED: PRED1TABL PO ×2 (17:25)
[2017-01-07] MEDS ORDERED: ALPR0.25 PO (17:26)
[2017-01-11] MEDS ORDERED: MILKSUS PO (14:10)
[2017-01-11] MEDS ORDERED: PERC7.5T11 PO (14:10)
[2017-01-11] MEDS ORDERED: COLA100C5 PO (14:10)
[2017-01-11] MEDS ORDERED: ONDA4TAB5 PO (14:10)
[2017-01-11] MEDS ORDERED: BACI50OI TOP (14:10)
[2017-01-11] MEDS ORDERED: INSUDET SC (14:10)
[2017-01-11] MEDS ORDERED: WARF-18 PO (15:23)
== END 2017-01-02 20:00 | disposition home or self-care (01) ==
LOC: M ED 13:30
DX: K56.7 Ileus, unspecified (principal); C79.51 Secondary malignant neoplasm of bone; M84.48XA Pathological fracture, other site, initial encounter for fracture; R00.0 Tachycardia, unspecified; K80.20 Calculus of gallbladder without cholecystitis without obstruction; I25.10 Atherosclerotic heart disease of native coronary artery without angina pectoris; I48.91 Unspecified atrial fibrillation; I50.9 Heart failure, unspecified; E11.9 Type 2 diabetes mellitus without complications; I11.0 Hypertensive heart disease with heart failure; K74.60 Unspecified cirrhosis of liver; E55.9 Vitamin D deficiency, unspecified; N40.0 Benign prostatic hyperplasia without lower urinary tract symptoms; Z79.4 Long term (current) use of insulin; Z79.01 Long term (current) use of anticoagulants; Z79.52 Long term (current) use of systemic steroids; Z79.899 Other long term (current) drug therapy; Z88.0 Allergy status to penicillin; Z88.8 Allergy status to other drugs, medicaments and biological substances
CPT/HCPCS: 71020; 74177; 78306; 80048; 80076; 82550; 82553; 83690; 84484; 85025; 85610; 85730; 93005; 93041; 94760; 96374; 96375; 99285; A9503; Q9963; Q9967

== ENCOUNTER → 2017-01-02 | Outpatient (CLI) | payer MEDICARE ==
[~2017-01-02] MED LIST changes: +BACI50OI TOP; +COLA100C5 PO; +GABA-279 PO; +INSUDET SC; +JANU100T PO; +MILKSUS PO; +NORC1TAB4 PO; +NORCOTAB PO; +ONDA4TAB5 PO; +PERC7.5T11 PO; +PRED1TABL PO
--- NOTE | 2017-01-02 13:45 | REP ---
Whole body radionuclide bone scan: History: Left 8th rib fracture. History of metastatic melanoma. Comparison bone scan April 29, 2016. Comparison chest CT December 29, 2016. Technique: 22.0 mCi technetium 99m MDP is injected and standard whole body bone scan imaging is acquired. Only a limited series of routine planar images were obtained before the patient declined to continue. Scintigraphic findings: There is an area of increased uptake in the lateral aspect of the left 8th rib corresponding with the recent rib series. There are also several other abnormal rib foci on the left posteriorly involving rib numbers 8 and 10. There is an area of increased uptake which appears to be new in the posterior elements of the 5th thoracic vertebrae. There is also a new area of increased uptake on the left side of the lumbosacral junction posterior elements. These findings are suspicious for metastatic disease. There is an equivocal focus along the lateral scapular border on the right as well. Impression: Findings suspicious for skeletal metastatic disease as above. Signed by Sachin Hernandez MD 01/02/2017 03:06 P
== END ==
LOC: M RAD 09:14
PROVIDERS: ATTEND Internal Medicine Medical Oncology
DX: M84.48XA Pathological fracture, other site, initial encounter for fracture (principal); C79.51 Secondary malignant neoplasm of bone

== ENCOUNTER → 2017-01-03 | Outpatient (CLI) | payer MEDICARE ==
[~2017-01-03] MED LIST changes: +BACI50OI TOP; +COLA100C5 PO; +GABA-279 PO; +INSUDET SC; +JANU100T PO; +MILKSUS PO; +NORC1TAB4 PO; +ONDA4TAB5 PO; +PERC7.5T11 PO; +PRED1TABL PO
--- NOTE | 2017-01-03 16:15 | REP ---
PET/CT: History: Restaging melanoma. Comparisons: Comparison PET/CT study August 03, 2016. Comparison CT abdomen and pelvis January 02, 2017. TECHNIQUE: 1 hour and 34 minutes following the intravenous injection of a 9.7 mCi dose of F-18 FDG, three-dimensional PET scintigraphy is acquired from the skull base to the proximal thighs. Triplanar noncontrast CT scanning is acquired through the same anatomic range for attenuation correction, and image registration with scan parameters optimized to minimize radiation exposure to the patient. PET scintigraphy and CT datasets were fused and displayed on a workstation with multiplanar and projection display capability. PET/CT Findings: There is evidence of significant now widespread metastatic progressive disease. Multiple hypermetabolic foci are seen within the liver and spleen as well as in periaortic and left pelvic lymphadenopathy. Right retrocrural hypermetabolic adenopathy and periesophageal hypermetabolic adenopathy is seen. There are multiple hypermetabolic bony foci including the left humerus, the left clavicle, the second sacral segment, L4, T10. There are two lesions in the right scapular tip. There are multiple bilateral rib foci of hypermetabolic uptake. There is a hypermetabolic nodule in the left upper lobe and there is hypermetabolic milagros uptake in each hilus. Maximum SUV values in these foci range up to 18. Also noted is a hypermetabolic focus in the anus with maximum standard uptake value up to 9.4. IMPRESSION: Widespread progressive metastatic hypermetabolic uptake pattern including pelvic, abdominal, hilar and mediastinal lymph node groups as well as pulmonary parenchymal, liver and spleen metastases, and skeletal metastases. Signed by Sachin Hernandez MD 01/03/2017 05:17 P
== END ==
LOC: M PLARAD 09:23
PROVIDERS: ATTEND Internal Medicine Medical Oncology
DX: C90.00 Multiple myeloma not having achieved remission (principal)
CPT/HCPCS: 78816; A9552